=== PATIENT | female | born 1990 | race Caucasian/White ===

== ENCOUNTER 2023-09-20 12:04 | Emergency (ER) | payer OTHER ==
[~2023-09-20] VITALS: Ht 167.6 cm; Wt 78.0 kg
[2023-09-20 12:29] VITALS: BP_SYST 116; PULSE 82; RESP 20; TEMP 97.7; O2SAT 98
[2023-09-20] MEDS: HYDROcodone/ACETAMIN 10-325 MG TAB PO ONE (14:27)
[2023-09-20] MEDS: KETOROLAC TROMETHAMINE 60 MG/2 ML VIAL IM ONE (14:34)
[2023-09-20] MEDS ORDERED: HYDR-3917 PO (14:54)
[2023-09-20] MEDS ORDERED: IBUP-1969 PO (14:54)
== END 2023-09-20 15:18 | disposition home or self-care (01) ==
LOC: SED 12:04
DX: S97.82XA Crushing injury of left foot, initial encounter (principal); Z79.899 Other long term (current) drug therapy; W20.8XXA Other cause of strike by thrown, projected or falling object, initial encounter; Y93.89 Activity, other specified; Y92.89 Other specified places as the place of occurrence of the external cause; Y99.8 Other external cause status
CPT/HCPCS: 99283; 73630; 96372; J1885